=== PATIENT | female | born 1990 | race Caucasian/White ===

== ENCOUNTER 2018-05-15 23:41 | Emergency (ER) | payer SELFPAY ==
[~2018-05-15 23:41] MED LIST: CYC10 PO; KETO-58 PO; NO RTN MEDS
--- NOTE | 2018-05-15 23:47 | ER Report ---
History and Physical Time Seen By MD: 23:45 HPI/ROS CHIEF COMPLAINT: long-term clearance HISTORY OF PRESENT ILLNESS: This is a 28 year old female. She was found outside, very cold. Unsure how long she was out. She had been out with friends and famil y. The [employer] was going to be giving her a ride to family, but she passed out in the back of the patrol car, so they brought her in here for evaluation. She has a little bit of ankle pain on left lateral ankle, stating she rolled it earlier today, but is not worried about it. She has no other illness or injury. She is just very cold right now. No shortness of breath. No chest pain. No nausea or vomiting. Allergies: Coded Allergies: No Known Drug Allergies (Unverified , 03/10/12) Home Meds Reported Medications Cyclobenzaprine Hcl (Flexeril) 10 Mg Tab, 10 MG PO Q8H, #10 03/10/12 Ketorolac Tromethamine (TORADOL 10 MG (OR EQUIV) TH) 2 Ea Tab, 1 EA PO Q6H, #12 03/10/12 Reviewed Nurses Notes: Yes Constitutional Vital Sign - Last 24 Hours 05/15/18 05/15/18 05/16/18 05/16/18 23:46 23:56 00:02 00:11 Temp 97.5 Pulse 102 110 107 Resp 24 B/P (MAP) 144/95 128/103 (111) Pulse Ox 92 92 95 O2 Delivery Room Air 05/16/18 05/16/18 00:26 00:30 Pulse 99 B/P (MAP) 125/80 (95) Pulse Ox 90 Physical Exam General Appearance: Alert, no acute distress, very cold. Eyes: Pupils equal and round no injection. ENT: Normal oral mucosa. Moist mucous membranes. Tympanic membranes are normal. Neck: Neck is supple and non tender. Respiratory: Chest is non tender, lungs are clear to auscultation. Cardiac: regular rate and rhythm Gastrointestinal: Abdomen is soft and non tender, no masses, bowel sounds normal. Musculoskeletal: Has some tenderness and mild swelling just below the lateral malleolus. Medial and lateral malleoli nontender. No tenderness in foot or head of 5th metatarsal. Skin: No rashes or lesions. DIFFERENTIAL DIAGNOSIS: After history and physical exam differential diagnosis was considered for patient with intoxication, cold from exposure, mild ankle sprain. Medical Decision Making Data Points Result Diagram: 05/15/18 2348 05/15/18 2348 Laboratory Hematology Test 05/15/18 23:48 Red Blood Count 5.46 M/uL (4.17-5.56) Mean Corpuscular Volume 95.2 fL (80.0-96.0) Mean Corpuscular Hemoglobin 33.0 pg (26.0-33.0) Mean Corpuscular Hemoglobin Concent 34.7 g/dL (32.0-36.0) Red Cell Distribution Width 12.2 % (11.5-14.5) Mean Platelet Volume 7.5 fL (7.2-11.1) Neutrophils (%) (Auto) 53.7 % (39.4-72.5) Lymphocytes (%) (Auto) 33.6 % (17.6-49.6) Monocytes (%) (Auto) 9.1 % (4.1-12.4) Eosinophils (%) (Auto) 2.4 % (0.4-6.7) Basophils (%) (Auto) 1.2 % (0.3-1.4) Nucleated RBC Relative Count (auto) 0.1 /100WBC Neutrophils # (Auto) 4.8 K/uL (2.0-7.4) Lymphocytes # (Auto) 3.0 K/uL (1.3-3.6) Monocytes # (Auto) 0.8 K/uL (0.3-1.0) Eosinophils # (Auto) 0.2 K/uL (0.0-0.5) Basophils # (Auto) 0.1 K/uL (0.0-0.1) Nucleated RBC Absolute Count (auto) 0.01 K/uL Sodium Level 146 mmol/L (137-145) Potassium Level 3.5 mmol/L (3.5-5.0) Chloride Level 107 mmol/L (98-107) Carbon Dioxide Level 26 mmol/L (22-31) Blood Urea Nitrogen 7 mg/dl (7-18) Creatinine 0.70 mg/dl (0.52-1.04) Glomerular Filtration Rate Calc > 60.0 Random Glucose 93 mg/dl (75-110) Calcium Level 8.7 mg/dl (8.4-10.2) Total Bilirubin 0.9 mg/dl (0.2-1.3) Aspartate Amino Transf (AST/SGOT) 247 U/L (0-35) Alanine Aminotransferase (ALT/SGPT) 238 U/L (0-56) Alkaline Phosphatase 89 U/L (0-126) Total Protein 8.7 g/dl (6.3-8.2) Albumin 4.8 g/dl (3.5-5.0) Human Chorionic Gonadotropin, Qual Negative (NEGATIVE) Serum Alcohol 299 mg/dl Chemistry Test 05/15/18 23:48 White Blood Count 8.9 k/uL (4.5-11.0) Red Blood Count 5.46 M/uL (4.17-5.56) Hemoglobin 18.1 g/dL (12.0-16.0) Hematocrit 52.0 % (34.0-47.0) Mean Corpuscular Volume 95.2 fL (80.0-96.0) Mean Corpuscular Hemoglobin 33.0 pg (26.0-33.0) Mean Corpuscular Hemoglobin Concent 34.7 g/dL (32.0-36.0) Red Cell Distribution Width 12.2 % (11.5-14.5) Platelet Count 355 K/uL (150-450) Mean Platelet Volume 7.5 fL (7.2-11.1) Neutrophils (%) (Auto) 53.7 % (39.4-72.5) Lymphocytes (%) (Auto) 33.6 % (17.6-49.6) Monocytes (%) (Auto) 9.1 % (4.1-12.4) Eosinophils (%) (Auto) 2.4 % (0.4-6.7) Basophils (%) (Auto) 1.2 % (0.3-1.4) Nucleated RBC Relative Count (auto) 0.1 /100WBC Neutrophils # (Auto) 4.8 K/uL (2.0-7.4) Lymphocytes # (Auto) 3.0 K/uL (1.3-3.6) Monocytes # (Auto) 0.8 K/uL (0.3-1.0) Eosinophils # (Auto) 0.2 K/uL (0.0-0.5) Basophils # (Auto) 0.1 K/uL (0.0-0.1) Nucleated RBC Absolute Count (auto) 0.01 K/uL Glomerular Filtration Rate Calc > 60.0 Calcium Level 8.7 mg/dl (8.4-10.2) Total Bilirubin 0.9 mg/dl (0.2-1.3) Aspartate Amino Transf (AST/SGOT) 247 U/L (0-35) Alanine Aminotransferase (ALT/SGPT) 238 U/L (0-56) Alkaline Phosphatase 89 U/L (0-126) Total Protein 8.7 g/dl (6.3-8.2) Albumin 4.8 g/dl (3.5-5.0) Human Chorionic Gonadotropin, Qual Negative (NEGATIVE) Serum Alcohol 299 mg/dl Toxicology Test 05/15/18 23:48 Serum Alcohol 299 mg/dl ED Course/Re-evaluation Clinical Indication for ER IV: Hydration, IV Access ED Course Labs show elevated alcohol and her liver enzymes are elevated. Discussed this with her and recommended avoiding alcohol or anything else that would be hard on the liver and follow-up with primary care for re-evaluation. Recommended avoiding Tylenol for now. Ankle sprain mild. Patient did not want further evaluation for this. Stable to be discharged with [facility] at this time. Decision to Disposition Date: May 16, 2018 Decision to Disposition Time: 00:32 Depart Departure Latest Vital Signs Vital Signs Date Time Temp Pulse Resp B/P (MAP) Pulse Ox O2 Delivery O2 Flow Rate FiO2 05/16/18 00:30 125/80 (95) 05/16/18 00:26 99 90 05/15/18 23:46 97.5 24 Room Air Impression: Primary Impression: Alcohol intoxication Additional Impressions: Left ankle sprain Elevated liver enzymes Condition: Improved Disposition: HOME OR SELF-CARE Patient Instructions: Alcohol Intoxication (ED), Ankle Sprain (ED) Additional Instructions: We recommend follow-up with primary care for reevaluation of your labs. Avoid alcohol use. You may want to avoid Tylenol use as well. For the ankle sprain: Ibuprofen 200mg over the counter tablets, take 4 tablets three times a day with food. Apply ice 20 minutes every 1-2 hours while awake. An JACKIE wrap can be used for compression to help reduce swelling. Rest the injured area, keep it elevated while at rest. Begin gentle range of motion exercises. Problem Qualifiers Primary Impression: Alcohol intoxication Complication of substance-induced condition: uncomplicated Qualified Codes: F10.920 - Alcohol use, unspecified with intoxication, uncomplicated Additional Impressions: Left ankle sprain Encounter type: initial encounter Involved ligament of ankle: anterior talofibular ligament Qualified Codes: S93.492A - Sprain of other ligament of left ankle, initial encounter CHERYL BROWN MD May 15, 2018 23:47
[2018-05-16] MEDS ORDERED: NS(*) 0.9% 1000 ML BAG 1,000 ML IV ONE (00:05)
[2018-05-16 00:11] LABS: PLATELET COUNT, AUTOMATED 355 K/uL (150-450)
[2018-05-16 00:30] VITALS: BP 125/80
== END 2018-05-16 00:43 ==
LOC: EDUNIT# 23:41 → ER 23:50
DX: F10.920 Alcohol use, unspecified with intoxication, uncomplicated (principal); Y90.8 Blood alcohol level of 240 mg/100 ml or more; S93.492A Sprain of other ligament of left ankle, initial encounter
CPT/HCPCS: 80320; 84703; 85025; 99283; J7030; 82040; 82247; 82310; 82374; 82435; 82565; 82947; 84075; 84132; 84155; 84295; 84450; 84460; 84520